=== PATIENT | female | born 1985 | race African-American/Black ===

== ENCOUNTER 2018-03-21 12:44 | Emergency (ER) | payer OTHER ==
[~2018-03-21] VITALS: Ht 160 cm; Wt 64.4 kg
[2018-03-21 13:01] VITALS: Ht 160 cm; Wt 64.4 kg
[2018-03-21 14:48] VITALS: BP 124/80
== END 2018-03-21 14:42 | disposition home or self-care (01) ==
LOC: ED 12:44
DX: S93.602A Unspecified sprain of left foot, initial encounter (principal); S80.01XA Contusion of right knee, initial encounter; W06.XXXA Fall from bed, initial encounter; Y93.89 Activity, other specified; Y92.89 Other specified places as the place of occurrence of the external cause; Y99.8 Other external cause status
CPT/HCPCS: Q0092

== ENCOUNTER 2019-05-27 08:53 | Emergency (ER) | payer OTHER ==
[~2019-05-27] VITALS: Ht 160 cm; Wt 56.2 kg
[2019-05-27 09:03] VITALS: Ht 160 cm; Wt 56.2 kg
[2019-05-27 10:51] VITALS: BP 105/65
== END 2019-05-27 11:41 | disposition home or self-care (01) ==
LOC: ED 08:53
DX: M94.0 Chondrocostal junction syndrome [Tietze] (principal); F17.210 Nicotine dependence, cigarettes, uncomplicated; Z88.8 Allergy status to other drugs, medicaments and biological substances
CPT/HCPCS: 99406; J1885

== ENCOUNTER 2019-06-15 07:06 | Emergency (ER) | payer OTHER ==
[~2019-06-15] VITALS: Ht 162.6 cm; Wt 54.4 kg
[2019-06-15 07:20] VITALS: Ht 162.6 cm; Wt 54.4 kg
[2019-06-15 08:51] VITALS: BP 103/58
== END 2019-06-15 08:51 | disposition home or self-care (01) ==
LOC: ED 07:06
DX: S30.0XXA Contusion of lower back and pelvis, initial encounter (principal); R07.89 Other chest pain; F17.210 Nicotine dependence, cigarettes, uncomplicated; W01.0XXA Fall on same level from slipping, tripping and stumbling without subsequent striking against object, initial encounter; Y93.89 Activity, other specified; Y92.89 Other specified places as the place of occurrence of the external cause; Y99.8 Other external cause status
CPT/HCPCS: 99406; J1885